=== PATIENT | male | born 1990 | race Caucasian/White ===

== ENCOUNTER 2021-10-26 19:32 | Emergency (ER) | payer SELFPAY ==
[2021-10-26 19:38] VITALS: BP 136/72; PULSE 71; RESP 14; TEMP 36.8; O2SAT 100
--- NOTE | 2021-10-26 19:46 | ED.MALEGU ---
HPI - Male Genitourinary General Chief complaint: Urogenital-Male Stated complaint: STD Exposure Time Seen by Provider: 10/26/21 19:46 Mode of arrival: ambulatory Limitations: no limitations History of Present Illness HPI Narrative: 31-year-old male presents with concern for treatment for chlamydia. Reports he was tested at an outside facility and was notified 3 days ago that he tested positive for chlamydia. He tested negative for the other STDs for which she was tested. He reports his only symptom is cloudy urine. MD Complaint: other (Positive chlamydia test) Related Data Home Medications Medication Instructions Recorded Confirmed No Home Medications 10/26/21 10/26/21 Allergies Allergy/AdvReac Type Severity Reaction Status Date / Time No Known Allergies Allergy Verified 10/26/21 19:48 Review of Systems Review of Systems: CONSTITUTIONAL: Denies malaise, chills, sweats, or fever. GASTROINTESTINAL: Denies abdominal pain, nausea, vomiting, diarrhea GENITOURINARY: Denies dysuria or hematuria. Reports cloudy urine SKIN: Denies rash or itching. Denies lesions All systems reviewed & are unremarkable except as noted in HPI and below PMFSH Comments At time of signature, agree with nursing past medical, surgical, social and family history. There is no relevant family history pertinent to the presenting complaint Exam Narrative: GENERAL: Well-appearing, well-nourished, and in no acute distress. HEAD: Normocephalic. EYES: PERRLA, conjunctivae clear. NECK: Supple. No lymphadenopathy CHEST: Clear to auscultation. No respiratory distress. HEART: Regular rate and rhythm. SKIN: Warm, dry, no rash. NEURO: Alert and oriented x3. PSYCH: Normal mood and affect Course Course Emergency Course: Patient is aware of diagnosis, understands and agrees to treatment plan. Anticipatory guidance given. Patient agrees to follow-up as directed and is aware of reasons to seek care at the emergency department. Portions of this record may have been created with voice recognition software Level of Care: Express Care Visit Vital Signs Vital signs: Vital Signs Temperature 98.2 F 10/26/21 19:38 Pulse Rate 71 10/26/21 19:38 Respiratory Rate 14 10/26/21 19:38 Blood Pressure 136/72 10/26/21 19:38 Pulse Oximetry 100 10/26/21 19:38 Temperature 98.2 F 10/26/21 19:38 Pulse Rate 71 10/26/21 19:38 Respiratory Rate 14 10/26/21 19:38 Blood Pressure 136/72 10/26/21 19:38 Pulse Oximetry 100 10/26/21 19:38 Reviewed. MDM - Male Genitourinary MDM Narrative Medical decision making narrative: Exam findings show no acute concerns or changes; patient is non-toxic appearing and is in no distress. Patient is appropriate for outpatient treatment and follow-up. Critical Care Time Critical Care Time Critical Care Time: No Discharge Plan Discharge Clinical Impression: Chlamydia Patient Disposition: Home, Self-Care Condition: Stable Instructions: Antibiotic Form, Chlamydia (ED) Additional Instructions: A prescription has been called into your pharmacy to treat chlamydia. It is very important that you avoid unprotected intercourse during treatment and for 7 days AFTER TREATMENT is complete and until your partner(s) have been treated. Please encourage your partner(s) to seek testing and treatment. When you have been exposed to sexually transmitted infections, it is important that you seek comprehensive testing, since we do not provide testing for all sexually transmitted infections. Some infections can have no symptoms, but cause serious health problems. Contact your health care provider or report to the emergency department if: You have genital swelling or pain, or unusual bleeding. You have joint pain, rash, swollen lymph nodes or night sweats. You are severe abdominal pain. You have a fever. Symptoms do not go away or they get worse even after treatment. You have bleeding or pain during sex. [facility] [[email or web address]]
== END 2021-10-26 19:55 | disposition home or self-care (01) ==
PROVIDERS: Emergency Provider Nurse Practitioner
DX: A74.9 Chlamydial infection, unspecified (principal)
CPT/HCPCS: 99213; G0463